=== PATIENT | female | born 1955 | race African-American/Black ===

== ENCOUNTER 2017-02-18 04:26 | Emergency (ER) | payer MEDICARE ==
[2017-02-18] MEDS ORDERED: LIDOCAINE 2% INJ (20 MG/ML) 20 ML MDV INJ ONE (04:49)
[2017-02-18] MEDS ORDERED: BUPIVACAINE HCL 0.5 % INJ/PF 30 ML SDV INJ ONE (04:50)
--- NOTE | 2017-02-18 04:54 | ER Document Report ---
ED General - General Chief Complaint: Toe Injury Stated Complaint: TOE INJURY Time Seen by Provider: 02/18/17 04:48 Notes: Patient is a 61-year-old female who is a diabetic who presents after her toenail caught the refrigerator and ripped up. The toenail completely from the nail bed except for a small portion of the proximal edge of the nail. She denies any other injuries. Some pain into her toe. No other complaints at this time. TRAVEL OUTSIDE OF THE [place] IN LAST 30 DAYS: No - Related Data Allergies/Adverse Reactions: simvastatin [From Zocor] Allergy (Verified 02/18/17 04:42) Past Medical History - Social History Smoking Status: Unknown if Ever Smoked Frequency of alcohol use: None Drug Abuse: None Family History: Reviewed & Not Pertinent Patient has suicidal ideation: No Patient has homicidal ideation: No - Past Medical History Cardiac Medical History: Reports: Hx Hypercholesterolemia, Hx Hypertension Endocrine Medical History: Reports: Hx Diabetes Mellitus Type 2 Renal/ Medical History: Denies: Hx Peritoneal Dialysis Review of Systems - Review of Systems Notes: My Normal Review Basic REVIEW OF SYSTEMS: CONSTITUTIONAL : Denies fever, chills, or sweats. Denies recent illness. MUSCULOSKELETAL: Left big toe injury. SKIN: Denies rash or skin lesions. NEUROLOGICAL: Denies altered mental status or loss of consciousness. Denies headache. Denies weakness or paralysis or loss of use of either side. Denies problems with gait or speech. Denies sensory or motor loss. ALL OTHER SYSTEMS REVIEWED AND NEGATIVE. Physical Exam - Vital signs Vitals: Temp Pulse Resp BP Pulse Ox 97.7 F 73 12 108/61 98 02/18/17 04:39 02/18/17 04:39 02/18/17 04:39 02/18/17 04:39 02/18/17 04:39 - Notes Notes: General Appearance: Well nourished, alert, cooperative, no acute distress, no obvious discomfort. Well Appearing. Vitals: reviewed, See vital signs table. Eyes: PERRL, EOMI, Conjuctiva clear Extremities: Patient has a amputation of the right lower leg. Left foot has almost complete avulsion of the left big toenail. The toenail was just hanging on by a small piece of the proximal nail. It is almost completely from the nail bed. Patient still has distal sensation. Good capillary refill. Swelling into the dorsum of the foot. Skin: warm, dry, appropriate color, no rash Neuro: speech clear, oriented x 3, normal affect, responds appropriately to questions. Course - Re-evaluation Re-evalutation: 02/18/17 05:45 Toenail was barely hanging on by a very small portion. I therefore clipped away the remainder of the toenail. Patient's has healthy-appearing nail bed without any laceration to the nailbed. No nailbed repair was needed. Bring with ChloraPrep prior to digital block. The nailbed surface was then cleaned with peroxide to help remove the dried blood. Toe was then placed in sterile dressing by the nurse. Patient tolerated procedure well. Patient will be placed on Cipro to help prevent possible secondary infection being that she is a diabetic. She is encouraged to return here immediately if she has any redness , increased swelling, or warmth or any signs of infection. Patient and family agree with plan and she will be discharged home. Dictation of this chart was performed using voice recognition software; therefore, there may be some unintended grammatical errors. - Vital Signs Vital signs: Temp Pulse Resp BP Pulse Ox 97.7 F 73 12 108/61 98 02/18/17 04:39 02/18/17 04:39 02/18/17 04:39 02/18/17 04:39 02/18/17 04:39 Procedures - Nail Trephanation/Removal left big toe Nail Trepanation/Removal Location: nail removal Betadine prep applied: No - Chloraprep Sterile Dressing Applied: Yes Notes: 02/18/17 05:43 Reminder of nail was removed. Nail bed is intact and did not require any repair. Toe was incised anesthetized via a digital block using a mixture of Lidocaine 2% with Bupivicaine 0.5%. Patient tolerated procedure well without complications. 02/18/17 05:45 Discharge - Discharge Clinical Impression: Nail avulsion, toe Qualifiers: Encounter type: initial encounter Qualified Code(s): S91.209A - Unspecified open wound of unspecified toe(s) with damage to nail, initial encounter Condition: Good Disposition: HOME, SELF-CARE Additional Instructions: Please change the dressing on your toe daily. Please follow up with your doctor or ocular care technologist this week for reevaluation. Please return to the ER immediately if you have increased swelling, redness, warmth, or any signs of infection. Prescriptions: Ciprofloxacin HCl [Cipro 500 mg Tablet] 500 mg PO BID #14 tablet
--- NOTE | 2017-02-18 05:25 | RADIOLOGY REPORT (SQ) ---
EXAM DESCRIPTION: TOE LEFT COMPLETED DATE/TIME: 02/18/2017 5:14 am REASON FOR STUDY: trauma big toe COMPARISON: None. NUMBER OF VIEWS: Three views. TECHNIQUE: AP, lateral, and oblique images acquired of the left first toe. LIMITATIONS: None. FINDINGS: MINERALIZATION: Osteopenia. BONES: 0.3 cm chronic erosion and/or subchondral degenerative cyst of the left 1st metatarsal head. JOINTS: No effusions. SOFT TISSUES: Moderate swelling/nail injury of the left 1st toe. OTHER: No other significant finding. IMPRESSION: Moderate swelling. No evidence of significant fracture or dislocation. COMMENT: SITE OF TRAUMA/COMPLAINT MARKED/STAMP COMPLETED: YES. TECHNICAL DOCUMENTATION: JOB ID: [id number] [employer]- All Rights Reserved
[2017-02-18] MEDS ORDERED: CIPROFLOXACIN HCL 500 MG TABLET PO ONE (05:34)
[2017-02-18 06:23] VITALS: BP 115/65
== END 2017-02-18 06:08 | disposition home or self-care (01) ==
LOC: ER 04:26
PROC: 0HBRXZZ Excision of Toe Nail, External Approach (ICD-10-PCS; principal; 2017-02-18)
DX: S91.209A Unspecified open wound of unspecified toe(s) with damage to nail, initial encounter (principal); X58.XXXA Exposure to other specified factors, initial encounter
CPT/HCPCS: 99283; 73660; 11765; J3490; A9270

== ENCOUNTER 2019-01-01 09:21 | Day surgery (SDC) | payer MEDICARE ==
[~2019-01-01 09:21] MED LIST: BESIFLOXACIN HCL 0.6% OPH SUSP 5 ML BOTTLE OS PRN; BUPIVACAINE HCL 0.75% INJ/PF (7.5 MG/1 ML) 10 ML SDV OS PRN; CYCLOPENTOLATE 0.2%/PHENYLEPHRINE 1% OPH SOLN 2 ML OS PRN; DORZOLAMIDE HCL 2%/TIMOLOL MALEAT 0.5% OPH SOLN 10 ML OS PRN; KETOROLAC TROMETHAMINE 0.45% 4 DROP/0.4 ML DROPERETTE OS PRN; LIDOCAINE 4% INJ/PF (40 MG/ML) 5 ML AMPUL OS PRN; TETRACAINE HCL 0.5% OPH SOLN 4 ML OS PRN; TROPICAMIDE 1% OPH SOLN 3 ML OS PRN
[2019-01-01] MEDS: TETRACAINE HCL 0.5% OPH SOLN 4 ML OS PRN ×4 (10:09→10:43)
[2019-01-01] MEDS: CYCLOPENTOLATE 0.2%/PHENYLEPHRINE 1% OPH SOLN 2 ML OS PRN ×3 (10:10→10:32)
[2019-01-01] MEDS: BESIFLOXACIN HCL 0.6% OPH SUSP 5 ML BOTTLE OS PRN ×5 (10:10→11:03)
[2019-01-01] MEDS: TROPICAMIDE 1% OPH SOLN 3 ML OS PRN ×3 (10:10→10:32)
[2019-01-01] MEDS ORDERED: MIDAZOLAM 2 MG/2 ML INJ ONE (10:18)
[2019-01-01] MEDS: CHONDR SU A NA/HYALUR INTRAOC KIT (SURGICARE) ONE ×2 (10:51)
[2019-01-01] MEDS: LIDOCAINE 1%/PHENYLEPHRINE 1.5% 1 ML VIAL ONE ×2 (10:51)
[2019-01-01] MEDS: EPINEPHRINE INJ/PF 1 MG/1 ML AMPULE ONE ×2 (10:51)
[2019-01-01] MEDS: DORZOLAMIDE HCL 2%/TIMOLOL MALEAT 0.5% OPH SOLN 10 ML OS PRN ×2 (11:03)
--- NOTE | 2019-01-02 08:34 | [facility] DISCHARGE SUMMARY E ---
[facility] Discharge Summary NAME: KATIA HARRISON AGE: 63Y ADMITTED: 01/01/2019 DISCHARGED: 01/01/2019 DIAGNOSIS: CATARACT, LEFT EYE. SUMMARY: This is a 62-year-old female who underwent cataract extraction of the left eye. She underwent surgery because she was having trouble seeing faces in the distance and trouble seeing small print. DISCHARGE INSTRUCTIONS: She should be on a regular diet, no bending at her waist, and no heavy lifting. She should use her Durezol, Ketorolac, and Besivance at 3 p.m. and 8 p.m. and sleep with a rigid shield. I will see her for a 1-day postoperative tomorrow. DICTATING PHYSICIAN: JOSE EDUARDO BRANTLEY M.D. [id number] PHY#: [id number] ID: [id number] JOB#: [id number] ACCT: [id number] cc:JOSE EDUARDO BRANTLEY M.D. >
--- NOTE | 2019-01-02 08:35 | [facility] OPERATIVE REPORT E ---
[facility] Operative Report NAME: KATIA HARRISON AGE: 63Y DATE OF SURGERY: 01/01/2019 ROOM: PREOPERATIVE DIAGNOSIS: CATARACT, LEFT EYE. POSTOPERATIVE DIAGNOSIS: CATARACT, LEFT EYE. OPERATION: Cataract extraction with insertion of an IOL of the left eye. SURGEON: JOSE EDUARDO BRANTLEY M.D. ANESTHESIA: Topical. PROCEDURE: After obtaining appropriate consent, the patient's left eye was prepped and draped in sterile fashion as well as the surgeon in a sterile manner and cataract surgery was started. First a paracentesis blade was used to make a side-port incision. Viscoelastic was used to inflate the anterior chamber. Next a 2.4 mm incision was made with a 2.4 mm blade, clear corneal temporally. A continuous capsulorrhexis was made using a cystotome and Utrata forceps. Following this hydrodissection was carried out to make the lens fully loose and mobile and it was rotated 90 degrees. Following this, a jjbjew-uwg-wqzhjtg technique was used to phacoemulsify the lens with a CDE of 19.5. The remaining cortex was removed with irrigation/aspiration. Provisc was instilled into the capsular bag to inflate the bag. A SN60WF, 15.5 diopter lens was placed. The remaining viscoelastic material was removed with irrigation/aspiration. Following this, the incision was found to be watertight. Besivance was instilled into the eye and a protective shield was placed over the eye. The patient returned to the postoperative recovery in stable condition. DICTATING PHYSICIAN: JOSE EDUARDO BRANTLEY M.D. [id number] PHY#: [id number] ID: [id number] JOB#: [id number] ACCT: [id number] cc:JOSE EDUARDO BRANTLEY M.D. >
== END 2019-01-01 11:44 | disposition home or self-care (01) ==
LOC: SC 09:21
PROVIDERS: ATTEND Internal Medicine
DX: H25.13 Age-related nuclear cataract, bilateral (principal); H40.1131 Primary open-angle glaucoma, bilateral, mild stage; E11.9 Type 2 diabetes mellitus without complications; I11.9 Hypertensive heart disease without heart failure; E78.00 Pure hypercholesterolemia, unspecified; Z86.73 Personal history of transient ischemic attack (TIA), and cerebral infarction without residual deficits; I25.10 Atherosclerotic heart disease of native coronary artery without angina pectoris; I49.9 Cardiac arrhythmia, unspecified; D64.9 Anemia, unspecified; E66.9 Obesity, unspecified; Z68.41 Body mass index [BMI] 40.0-44.9, adult; Z87.891 Personal history of nicotine dependence; Z79.4 Long term (current) use of insulin; Z79.899 Other long term (current) drug therapy; Z79.84 Long term (current) use of oral hypoglycemic drugs; Z79.01 Long term (current) use of anticoagulants
CPT/HCPCS: 66984; 82962; V2632; J2250; J3490 ×2; A9270; J0171; J2370

== ENCOUNTER 2020-04-03 17:14 | Emergency (ER) | payer MEDICARE ==
--- NOTE | 2020-04-03 17:52 | ER Document Report ---
ED Medical Screen (RME) - General Chief Complaint: Headache Stated Complaint: HIGH BLOOD PRESSURE Time Seen by Provider: 04/03/20 17:44 Primary Care Provider: MARIA DEL CARMEN ALCAZAR FNP [Primary Care Provider] - Follow up as needed Mode of Arrival: Wheelchair Information source: Patient Notes: Patient presents complaining of elevated blood pressure reading at home in which her systolic number was 250. Patient uncertain what the diastolic number was. Patient states that she can hear her heartbeat in her head and has persistent headache pain at this time. Patient denies any chest pain or shortness of breath. Patient has had a history of stroke as well as carotid endarterectomy and was concerned about this today. Patient also with a history of CAD, PAD, hypertension, and diabetes I have greeted and performed a rapid initial assessment of this patient. A comprehensive ED assessment and evaluation of the patient, analysis of test results and completion of the medical decision making process will be conducted by additional ED providers. TRAVEL OUTSIDE OF THE [place] IN LAST 30 DAYS: No - Related Data Allergies/Adverse Reactions: simvastatin [From Zocor] Allergy (Verified 12/04/18 13:41) Past Medical History - Social History Frequency of alcohol use: Rare Drug Abuse: None - Past Medical History Cardiac Medical History: Reports: Hx Hypercholesterolemia, Hx Hypertension Denies: Hx Heart Attack Pulmonary Medical History: Denies: Hx Asthma Neurological Medical History: Reports: Hx Cerebrovascular Accident - NO RESIDUAL . Denies: Hx Seizures Endocrine Medical History: Reports: Hx Diabetes Mellitus Type 2 Renal/ Medical History: Denies: Hx Peritoneal Dialysis GI Medical History: Denies: Hx Hepatitis, Hx Hiatal Hernia, Hx Ulcer Infectious Medical History: Denies: Hx Hepatitis Past Surgical History: Denies: Hx Mastectomy, Hx Open Heart Surgery, Hx Pacemaker - Immunizations Hx Diphtheria, Pertussis, Tetanus Vaccination: Yes Physical Exam - Vital signs Vitals: Temp Pulse Resp BP Pulse Ox 98.9 F 93 20 154/55 H 97 04/03/20 17:21 04/03/20 17:21 04/03/20 17:21 04/03/20 17:21 04/03/20 17:21 - Cardiovascular Rhythm: Regular Heart sounds: S1 appreciated, S2 appreciated - Neurological Orientation: AAOx4 [place] Coma Scale Eye Opening: Spontaneous [place] Coma Scale Verbal: Oriented [place] Coma Scale Motor: Obeys Commands Antonio Coma Scale Total: 15 Course - Vital Signs Vital signs: Temp Pulse Resp BP Pulse Ox 98.9 F 93 20 154/55 H 97 04/03/20 17:21 04/03/20 17:21 04/03/20 17:21 04/03/20 17:21 04/03/20 17:21 Doctor's Discharge - Discharge Referrals: MARIA DEL CARMEN ALCAZAR FNP [Primary Care Provider] - Follow up as needed
[2020-04-03 18:32] LABS: ANION GAP 8 (5-19); BLOOD UREA NITROGEN 34 mg/dL (7-20); CALCIUM 9.7 mg/dL (8.4-10.2); CARBON DIOXIDE 29 mmol/L (22-30); CHLORIDE 105 mmol/L (98-107); GLUCOSE 94 mg/dL (75-110); POTASSIUM 4.9 mmol/L (3.6-5.0)
[2020-04-03 18:36] LABS: ABSOLUTE EOSINOPHILS # (AUTO) 0.1 10^3/uL (0.0-0.6); ABSOLUTE LYMPHOCYTES (AUTO) 2.5 10^3/uL (0.5-4.7); ABSOLUTE MONOCYTES (AUTO) 0.7 10^3/uL (0.1-1.4); BASOPHILS % (AUTO) 0.3 % (0-2); EOSINOPHILS % (AUTO) 0.8 % (0-6); HEMATOCRIT 33.6 % (36.0-47.0); HEMOGLOBIN 10.3 g/dL (12.0-15.5); MEAN CORPUSCULAR HEMOGLOBIN 19.2 pg (27.0-33.4); MEAN CORPUSCULAR HGB CONC 30.6 g/dL (32.0-36.0); MONOCYTES % (AUTO) 8.1 % (3-13); PLATELET COUNT 418 10^3/uL (150-450); RED BLOOD COUNT 5.36 10^6/uL (3.72-5.28); RED CELL DISTRIBUTION WIDTH 20.8 % (11.5-14.0); SEGMENTED NEUTROPHILS % (AUTO) 60.8 % (42-78); TOTAL CELLS COUNTED % (AUTO) 100 %; WHITE BLOOD COUNT 8.3 10^3/uL (4.0-10.5)
--- NOTE | 2020-04-03 18:46 | RADIOLOGY REPORT (SQ) ---
EXAM DESCRIPTION: CT HEAD WITHOUT IMAGES COMPLETED DATE/TIME: 04/03/2020 6:28 pm REASON FOR STUDY: LEE, HTN COMPARISON: 12/13/2006 TECHNIQUE: Axial images acquired through the brain without intravenous contrast. Images reviewed wi bone, brain and subdural windows. Additional sagittal and coronal reconstructions were generated. Images stored on PACS. All CT scanners at this facility use dose modulation, iterative reconstruction, and/or weight based d osing when appropriate to reduce radiation dose to as low as reasonably achievable (ALARA). [facility]: Dose Right [facility]: CareDose [facility]: Dose Right [facility]: Teradose 4D [facility]: [employer] RADIATION DOSE: CT Rad equipment meets quality standard of care and radiation dose reduction techniq ues were employed. CTDIvol: 53.2 mGy. DLP: 937 mGy-cm. mGy. LIMITATIONS: None. FINDINGS: VENTRICLES: Normal size and contour. CEREBRUM: Geographic hypoattenuation seen within the left frontal lobe is similar to, but more pronou nced than that seen on 2006 CT imaging. No significant ex vacuo dilatation of the frontal horn of th e left lateral ventricle. Within the left frontal fossa there is a heterogeneous area which may repr esent an underlying mass. Otherwise normal guajardo - white matter differentiation and attenuation. No a cute intracranial hemorrhage. CEREBELLUM: No masses. No hemorrhage. No alteration of density. No evidence for acute infarction. EXTRAAXIAL SPACES: No fluid collections. No masses. ORBITS AND GLOBE: No intra- or extraconal masses. Normal contour of globe without masses. CALVARIUM: No fracture. PARANASAL SINUSES: No fluid or mucosal thickening. SOFT TISSUES: No mass or hematoma. OTHER: No other significant finding. IMPRESSION: Interval progression in the appearance of left frontal lobe hypoattenuation without ex v acuo dilatation of the frontal horn of the left lateral ventricle. Heterogeneous area within this fi nding suggests an underlying mass. Recommend further evaluation with contrast-enhanced MR imaging. EVIDENCE OF ACUTE STROKE: NO. COMMENT: This report was called to JANET BOWERS NP at18:35 on 04/03/2020. Quality ID # [id number]: Final reports with documentation of one or more dose reduction techniques (e.g., Au tomated exposure control, adjustment of the mA and/or kV according to patient size, use of iterative reconstruction technique) TECHNICAL DOCUMENTATION: JOB ID: [id number] 2010 [employer]- All Rights Reserved Reading location - IP/workstation name: POP
[2020-04-03 19:06] LABS: ANISOCYTOSIS 2+; HYPOCHROMASIA 2+; OVALOCYTES 1+; PLATELET COMMENT ADEQUATE; PLATELET LARGE PRESENT; TARGET CELLS SLIGHT
[2020-04-03 19:07] LABS: MEAN CORPUSCULAR VOLUME 63 fl (80-97)
--- NOTE | 2020-04-03 20:17 | RADIOLOGY REPORT (SQ) ---
MR BRAIN WITHOUT THEN WITH IV CONTRAST HISTORY: Headache. Evaluate for mass. COMPARISON: CT scan from earlier the same day. TECHNIQUE: Multisequence, multiplanar MR imaging of the brain was performed without and with the administration of intravenous gadolinium. FINDINGS: There is an area of encephalomalacia in the left frontal lobe with surrounding gliosis. There is no enhancing mass or fluid collection in this region. No abnormal enhancement is seen. There is no acute infarction, intracranial hemorrhage, extra-axial fluid collection, or mass. The orbits are unremarkable. The calvarium and skull base appear unremarkable. The paranasal sinuses are clear. IMPRESSION: 1. No acute intracranial findings. 2. Old infarct in the left frontal lobe but without evidence of enhancing mass or fluid collection.
[2020-04-03] MEDS ORDERED: ONDANSETRON HCL INJ/PF 4 MG/2 ML SDV IV ONE (20:34)
[2020-04-03] MEDS ORDERED: MORPHINE SULFATE 10 MG/ML INJ IV ONE (20:34)
--- NOTE | 2020-04-03 20:43 | ER Document Report ---
ED General - General Chief Complaint: Headache Stated Complaint: HIGH BLOOD PRESSURE Time Seen by Provider: 04/03/20 17:44 Primary Care Provider: MARIA DEL CARMEN ALCAZAR FNP [Primary Care Provider] - Follow up as needed Mode of Arrival: Wheelchair TRAVEL OUTSIDE OF THE [place] IN LAST 30 DAYS: No - HPI Context: This is a 64-year-old morbidly obese female with history of hypertension that presents to the emergency department complaining of headache and persistently elevated blood pressure. Patient also complains of a persistent throbbing or drumming sound in her ears that has been present for the past 8 months. Patient states she is seen her primary care doctor about this and has been put on blood pressure medications because her blood pressure runs high but she still has the drumming sensation in her ears. Patient describes her headache as diffuse and rates it as a 5 out of 5. Patient states that the pain is sharp. Patient denies visual changes nausea vomiting, loss of taste, loss of sense of smell, proximity with patients who are COVID positive or persons under investigation for COVID. Patient denies medication noncompliance. Patient states nothing is alleviating her symptoms and her symptoms are sometimes worsened when she is laying supine in bed and the drumming sound in her ears is worse. Patient has not tried any edvy-fqd-hlfzgbw remedies for her symptoms. Patient is currently taking hydralazine 50 mg p.o. 3 times daily and losartan 50 mg p.o. daily. Associated symptoms: Other - See HPI Exacerbated by: Other Relieved by: Other - See HPI see HPI - Related Data Allergies/Adverse Reactions: simvastatin [From Zocor] Allergy (Verified 12/04/18 13:41) Past Medical History - General Information source: Patient - Social History Smoking Status: Former Smoker Frequency of alcohol use: Rare Drug Abuse: None Family History: Reviewed & Not Pertinent Patient has suicidal ideation: No Patient has homicidal ideation: No - Past Medical History Cardiac Medical History: Reports: Hx Hypercholesterolemia, Hx Hypertension Denies: Hx Heart Attack Pulmonary Medical History: Denies: Hx Asthma Neurological Medical History: Reports: Hx Cerebrovascular Accident - NO RESIDUAL . Denies: Hx Seizures Endocrine Medical History: Reports: Hx Diabetes Mellitus Type 2 Renal/ Medical History: Denies: Hx Peritoneal Dialysis GI Medical History: Denies: Hx Hepatitis, Hx Hiatal Hernia, Hx Ulcer Infectious Medical History: Denies: Hx Hepatitis Past Surgical History: Reports: Hx Orthopedic Surgery. Denies: Hx Mastectomy, Hx Open Heart Surgery, Hx Pacemaker - Immunizations Hx Diphtheria, Pertussis, Tetanus Vaccination: Yes Review of Systems - Review of Systems Notes: Patient denies chest pain, shortness of breath, cough, abdominal pain, nausea and vomiting Constitutional: No symptoms reported EENT: See HPI Cardiovascular: No symptoms reported Respiratory: No symptoms reported Gastrointestinal: No symptoms reported Genitourinary: No symptoms reported Female Genitourinary: No symptoms reported Musculoskeletal: No symptoms reported Skin: No symptoms reported Hematologic/Lymphatic: No symptoms reported Neurological/Psychological: Headaches -: Yes All other systems reviewed and negative Physical Exam - Vital signs Vitals: Temp Pulse Resp BP Pulse Ox 98.9 F 93 20 154/55 H 97 04/03/20 17:21 04/03/20 17:21 04/03/20 17:21 04/03/20 17:21 04/03/20 17:21 - Notes Notes: CONSTITUTIONAL [Vital signs reviewed, Patient appears comfortable, Alert and oriented X 3. Patient is morbidly obese] HEAD [Atraumatic, Normocephalic.] EYES [Eyes are normal to inspection, No discharge from eyes, Extraocular muscles intact, Sclera are normal, Conjunctiva are normal.] ] NECK [Normal ROM, No jugular venous distention, No meningeal signs, no carotid bruit.] RESPIRATORY CHEST [Chest is nontender, Breath sounds normal, No respiratory distress.] CARDIOVASCULAR [RRR, No murmurs, Normal S1 S2, No rub, No gallop.] ABDOMEN [Abdomen is nontender, No pulsatile masses, No other masses, Bowel sounds normal, No distension, No peritoneal signs, No hernias.] BACK [There is no CVA Tenderness, There is no tenderness to palpation, Normal inspect ion.] UPPER EXTREMITY [Inspection normal, No cyanosis, No clubbing, No edema, 2+ radial pulses.] LOWER EXTREMITY [Inspection normal, No cyanosis, No clubbing, No edema, No calf tenderness, 2+ femoral pulses.] NEURO [No focal motor deficits, No focal sensory deficits, Speech normal.] SKIN [Skin is warm, Skin is dry, Skin is normal color.] LYMPHATIC [No adenopathy in neck.] PSYCHIATRIC [Normal affect. ] Course - Re-evaluation Re-evalutation: 04/04/20 00:00 Patient states her headache is better and the drumming sound in her ears is better since being given Toradol and labetalol. Results of ED MSE discussed with patient. All questions were answered prior to discharge. Emergency signs and symptoms, reasons to return to the emergency department discussed with patient. - Vital Signs Vital signs: Temp Pulse Resp BP Pulse Ox 98.9 F 93 20 154/55 H 97 04/03/20 17:21 04/03/20 17:21 04/03/20 17:21 04/03/20 17:21 04/03/20 17:21 - Laboratory Result Diagrams: 04/03/20 17:58 04/03/20 17:58 Laboratory results interpreted by me: 04/03/20 04/03/20 17:58 17:58 RBC 5.36 H Hgb 10.3 L Hct 33.6 L MCV 63 L MCH 19.2 L MCHC 30.6 L RDW 20.8 H BUN 34 H Est GFR ( Amer) 57 L Est GFR (MDRD) Non-Af 47 L - Diagnostic Test Radiology reviewed: Reports reviewed Discharge - Discharge Clinical Impression: Hypertension Qualifiers: Hypertension type: unspecified Qualified Code(s): I10 - Essential (primary) hypertension Headache Qualifiers: Headache type: unspecified Headache chronicity pattern: unspecified pattern Condition: Stable Disposition: HOME, SELF-CARE Instructions: Headache ([facility]), High Blood Pressure ([facility]) Additional Instructions: Return to the Emergency Department without delay if any worse. HOME CARE INSTRUCTIONS & INFORMATION: Thank you for choosing us for your medical needs. We hope you're satisfied with the care you received. After you leave, you must properly care for your problem and, at the same time, observe its progress. Any condition can change. Some illnesses can change rapidly over hours or days. If your condition worsens, return to the Emergency Department or see your physician promptly. ABOUT YOUR X-RAYS AND EKG'S: If you had an EKG or X-rays taken, they have been read by the Emergency Physician. The X-rays and EKG's will also be read by a Radiologist or Gas Cutter within 24 hours. If discrepancies are noted, you will be notified by telephone. Please be certain the ED has a correct telephone number & address where you can be reached. Also, realize that some fractures or abnormalities do not show up on initial X-rays. If your symptoms continue, see your physician. ABOUT YOUR LABORATORY TEST: If you had laboratory tests, the results have been reviewed by the Emergency Physician. Some test results (for example cultures) may not be available for several days. You will be contacted if any test result shows you need additional treatment. Please be certain the ED has a correct telephone number and address where you can be reached. ABOUT YOUR MEDICATIONS: You will receive instructions on how to take your medicine on the prescription label you receive. Additional information may be provided by the Pharmacy. If you have questions afterwards, call the ED for clarification or further instructions. Some prescribed medications may cause drowsiness. Do not perform tasks such as driving a car or operating machinery without consulting your Pharmacist. If you feel you need a refill of pain medication, your condition will need re-evaluation. Please do not call for a refill of any medication. ABOUT YOUR SIGNATURE: Signature of this document acknowledges to followin. Understanding that you received emergency treatment and that you may be released before al medical problems are known or treated. Please be certain the ED has a correct phone number & address where you can be reached. 2. Acknowledgement that you will arrange for follow-up care as recommended. 3. Authorization for the Emergency Physician to provide information to your follow-up Physician in order to maximize your care. AT ANY TIME, IF YOUR SYMPTOMS CHANGE SIGNIFICANTLY OR WORSEN OR YOU DEVELOP NEW SYMPTOMS, RETURN TO THE EMERGENCY DEPARTMENT IMMEDIATELY FOR RE-EVALUATION. OUR GOAL IS TO PROVIDE EXCELLENT MEDICAL CARE! WE HOPE THAT WE HAVE MET YOUR EXPECTATIONS DURING YOUR EMERGENCY DEPARTMENT VISIT AND THAT YOU FEEL YOU HAVE RECEIVED EXCELLENT CARE! Prescriptions: Metoprolol Succinate [Toprol Xl 25 mg Tab.sr] 25 mg PO QAM 14 Days #14 tab.sr.24h Forms: Return to Work Referrals: MARIA DEL CARMEN ALCAZAR FNP [Primary Care Provider] - Follow up as needed
[2020-04-03] MEDS ORDERED: KETOROLAC TROMETHAMINE INJ/PF 30 MG/1 ML SDV IV ONE (22:23)
[2020-04-03] MEDS ORDERED: LABETALOL HCL INJ 20 MG/4 ML DISP.SYRIN IV ONE (22:24)
[2020-04-04 00:48] VITALS: BP 143/58
[2020-04-04 13:08] LABS: PATH REVIEW PATHOLOGIST REVIEWED
== END 2020-04-04 00:35 | disposition home or self-care (01) ==
LOC: ER 17:14
DX: R51 Headache (principal); I10 Essential (primary) hypertension; H93.8X3 Other specified disorders of ear, bilateral; E78.00 Pure hypercholesterolemia, unspecified; E11.9 Type 2 diabetes mellitus without complications; Z86.73 Personal history of transient ischemic attack (TIA), and cerebral infarction without residual deficits
CPT/HCPCS: 99285; 96374; 96375; 36415; 85025; 80048; 70553; 70450; A9576; J3490; J1885; J2270; J2405

== ENCOUNTER 2020-07-24 15:41 | Emergency (ER) | payer MEDICARE ==
[2020-07-24 15:48] VITALS: BP 183/72
[2020-07-24] MEDS ORDERED: ACETAMINOPHEN 325 MG TABLET PO ONE (16:18)
[2020-07-24] MEDS ORDERED: BENZONATATE 100 MG CAPSULE PO ONE (16:20)
--- NOTE | 2020-07-24 16:20 | ER Document Report ---
ED Medical Screen (RME) - General Stated Complaint: COUGH Time Seen by Provider: 07/24/20 16:14 Primary Care Provider: MARIA DEL CARMEN ALCAZAR FNP [Primary Care Provider] - Follow up as needed Notes: Patient is a 64-year-old female with a history of diabetes, hyperlipidemia, and hypertension who presents emergency department with a cough x6 days. Patient states that she started off with left eye pain with some drainage. Patient reports that she did have contact with a family member who tested positive for COVID-19. Exam: Cough noted. O2 saturation 97% on room air. I have greeted and performed a rapid initial assessment of this patient. A comprehensive ED assessment and evaluation of the patient, analysis of test results and completion of medical decision making process will be conducted by an additional ED providers. TRAVEL OUTSIDE OF THE [place] IN LAST 30 DAYS: No - Related Data Allergies/Adverse Reactions: simvastatin [From Zocor] Allergy (Verified 07/24/20 16:19) Past Medical History - Past Medical History Cardiac Medical History: Reports: Hx Hypercholesterolemia, Hx Hypertension Denies: Hx Heart Attack Pulmonary Medical History: Denies: Hx Asthma Neurological Medical History: Reports: Hx Cerebrovascular Accident - NO RESIDUAL . Denies: Hx Seizures Endocrine Medical History: Reports: Hx Diabetes Mellitus Type 2 Renal/ Medical History: Denies: Hx Peritoneal Dialysis GI Medical History: Denies: Hx Hepatitis, Hx Hiatal Hernia, Hx Ulcer Infectious Medical History: Denies: Hx Hepatitis Past Surgical History: Reports: Hx Orthopedic Surgery. Denies: Hx Mastectomy, Hx Open Heart Surgery, Hx Pacemaker - Immunizations Hx Diphtheria, Pertussis, Tetanus Vaccination: Yes Physical Exam - Vital signs Vitals: Temp Pulse Resp BP Pulse Ox 98.2 F 80 16 183/72 H 97 07/24/20 15:47 07/24/20 15:47 07/24/20 15:47 07/24/20 15:47 07/24/20 15:47 Course - Vital Signs Vital signs: Temp Pulse Resp BP Pulse Ox 98.2 F 80 16 183/72 H 97 07/24/20 15:47 07/24/20 15:47 07/24/20 15:47 07/24/20 15:47 07/24/20 15:47 Doctor's Discharge - Discharge Referrals: MARIA DEL CARMEN ALCAZAR FNP [Primary Care Provider] - Follow up as needed
--- NOTE | 2020-07-24 17:06 | RADIOLOGY REPORT (SQ) ---
EXAM DESCRIPTION: CHEST SINGLE VIEW IMAGES COMPLETED DATE/TIME: 07/24/2020 1:56 pm REASON FOR STUDY: cough x6 days COMPARISON: None. EXAM PARAMETERS: NUMBER OF VIEWS: One view. TECHNIQUE: Single frontal radiographic view of the chest acquired. RADIATION DOSE: NA LIMITATIONS: None. FINDINGS: LUNGS AND PLEURA: No opacities, masses or pneumothorax. No pleural effusion. MEDIASTINUM AND HILAR STRUCTURES: No masses. Contour normal. HEART AND VASCULAR STRUCTURES: Heart normal in size. Normal vasculature. BONES: No acute findings. HARDWARE: None in the chest. OTHER: No other significant finding. IMPRESSION: NO ACUTE RADIOGRAPHIC FINDING IN THE CHEST. TECHNICAL DOCUMENTATION: JOB ID: [id number] [id number]- All Rights Reserved Reading location - IP/workstation name: [email or web address]
== END 2020-07-24 18:04 | disposition left against medical advice (07) ==
LOC: ER 15:41
DX: R05 Cough (principal); E11.9 Type 2 diabetes mellitus without complications; E78.5 Hyperlipidemia, unspecified; I10 Essential (primary) hypertension; H57.12 Ocular pain, left eye
CPT/HCPCS: 71045; 99281